=== PATIENT | female | born 2000 | race Caucasian/White ===

== ENCOUNTER 2020-06-24 09:15 | Emergency (ER) | payer OTHER, SELFPAY ==
[2020-06-24 09:19] VITALS: BP 157/127; PULSE 127; RESP 18; TEMP 36.8; O2SAT 98; BMI 26.5
[2020-06-24 09:38] VITALS: BP 142/97; PULSE 90; RESP 20; O2SAT 95
[2020-06-24 10:04] VITALS: BP 131/78; PULSE 74; RESP 20; O2SAT 96
--- NOTE | 2020-06-24 10:04 | CT_ITS ---
WS: [id number] CT ABDOMEN AND PELVIS WITH CONTRAST HISTORY: Lower abdominal pain. Periumbilical pain. TECHNIQUE: Imaging performed of the abdomen and pelvis with IV contrast. Single phase imaging of the abdomen. Coronal and sagittal reformats are submitted. All CT scans at [facility] use at least one of these dose optimization techniques: automated exposure control; mA and/or kV adjustment per patient size (includes targeted exams where dose is matched to clinical indication); or iterativ e reconstruction. IV CONTRAST: Omnipaque 300; 95 mL IV. Oral contrast: No DLP: 462.57 mGy.cm COMPARISON: None available. Lower thorax: Lung bases are clear. Heart is normal size. No hiatal hernia. Liver/biliary system: Normal size with no intrahepatic dilatation. Gallbladder: Normal. No gallstones or wall thickening. No pericholecystic fluid. Pancreas: Normal. Spleen: Normal. Adrenal glands: Normal. Right kidney: Normal. Left kidney: Normal. Aorta: Normal. Lymphadenopathy: None. Free fluid: Very small amount of free fluid in the pelvis to the RIGHT of midline. GI tract: The appendix is not definitely identified. I believe I can see very small portion of the ap pendix which is normal. Abdominal wall: Unremarkable abdominal wall. No hernia. Pelvis: Uterus is anteverted. Both ovaries are identified and contain small follicles. Bones: Unremarkable. CT/CT abdomen pelvis w con* [id number] IMPRESSION: 1. Cannot completely identify the appendix. Very small portion of the appendix is identified and normal contains air. 2. Tiny amount of free fluid in the RIGHT pelvis. 3. No GI tract obstruction.
--- NOTE | 2020-06-24 10:05 | ED_ITS ---
HPI - GI Bleed General: Chief complaint: GI Bleed Stated complaint: Lower abdominal/bowel Time Seen by Provider: 06/24/20 09:26 History of Present Illness: HPI Narrative: 20-year-old female comes in complaining of increased diffuse abdominal cramping started last night progressively worsened. She also had some diarrhea with it. When she first went to bed last night she had a few loose stools with some streaks of blood the cramping woke her up and continued had increasing amounts of blood but she does not have enough blood in the stool to discolor the toilet water. She denies any vomiting. She is not had a fever. She has not had similar episodes of this in the past she has no known history of ulcerative colitis or Crohn's. MD complaint: blood streaked stool Onset (ago): hour(s) Pain Consistency: intermittent Severity: moderate Relieving factors: none Exacerbating factors: none Associated symptoms: Reports abdominal pain, nausea and poor appetite; Denies chills, easy bruising, epistaxis, fever(s), headache(s), malaise, other bleeding, rash, syncope, vomiting or weakness Treatments Prior to Arrival: none Review of Systems Const: Denies: fever(s), chills or malaise ENMT: Denies: epistaxis Card: Denies: syncope Resp: Denies: dyspnea, productive cough or non-productive cough GI: Reports: abdominal pain and nausea; Denies: vomiting : Denies: flank pain, difficulty voiding, dysuria, urinary frequency or urinary urgency Skin/Breast: Denies: rash Neuro: Denies: headache(s) Asif/Lymph: Denies: easy bruising [facility] ED PFSH: Medical History (Updated 06/24/20 @ 11:59 by Danny Granda DO) IBS (irritable bowel syndrome) Social History Smoking and tobacco status: never smoked Physical Exam Const: COMMON NORMALS: no acute distress GENERAL APPEARANCE: cooperative and comfortable ORIENTATION/CONSCIOUSNESS: Yes awake, Yes oriented to person, Yes oriented to place and Yes oriented to time HENMT: COMMON NORMALS: normocephalic, atraumatic and hearing grossly normal bilaterally HEAD & SCALP: normocephalic and atraumatic Neck/C-Spine: COMMON NORMALS: no JVD Resp: COMMON NORMALS: normal respiratory effort, No retractions, No use of accessory muscles and clear to auscultation bilaterally AUSCULTATION: clear to auscultation bilaterally Cardio: COMMON NORMALS: no JVD, regular rate, regular rhythm and No murmurs present (Cardio) RATE: regular rate RHYTHM: regular rhythm GI: COMMON NORMALS: Soft to palpation and No hepatosplenomegaly present AUSCULTATION: Yes normoactive bowel sounds PALPATION: Yes Soft to palpation, Yes Tenderness to palpation present (GI) (diffuse tenderness, negative Mehta's negative Rovsing's no specific pain at McBurney's point with percussion no rebound. No peritoneal signs) Details: other, No Guarding due to palpation present (GI) and Yes No hepatosplenomegaly present Extremity: COMMON NORMALS: normal to inspection, capillary refill normal, no clubbing, cyanosis or edema, no calf tenderness and no pedal edema Neuro: SENSORIUM/ORIENTATION: Yes oriented to person, Yes oriented to place and Yes oriented to time Skin: COMMON NORMALS: no rashes or lesions noted GENERAL SKIN EXAM: no rashes or lesions noted Course Vital Signs: Vital signs: Vital Signs Temperature 98.2 F 06/24/20 09:19 Pulse Rate 86 06/24/20 12:10 Respiratory Rate 18 06/24/20 12:10 Blood Pressure 125/72 06/24/20 12:10 Pulse Oximetry 99 06/24/20 12:10 MDM - GI Bleed MDM Narrative: Medical decision making narrative: Hemoglobin is good at 15 5. We will go ahead and start her on Cipro and Flagyl to cover for infectious colitis refer her to primary care to later get a colonoscopy. If she has any worsening symptoms return. Additionally discussed that she does have a mild cystitis she got a dose of Rocephin here in the Cipro should cover the remainder of that infection as well she has worsening problems return to the emergency room. Lab Data: Labs: Lab Results 06/24/20 06/24/20 06/24/20 Range/Units 09:48 09:48 11:00 WBC 7.9 (4.0-10.0) 10^3/ uL RBC 5.47 H (4.1-5.3) 10^6/u L Hgb 15.5 H (11.5-15.3) g/dL Hct 47.2 H (37.0-47.0) % MCV 86.3 (81-99) fL MCH 28.3 (28.0-34.0) pg MCHC 32.8 (30.0-36.0) g/dL RDW 12.2 (12.1-15.1) % Plt Count 327 (130-400) 10^3/c mm MPV 10.5 H (7.4-10.4) fL Neut % (Auto) 66.8 % Lymph % (Auto) 24.6 % [place] % (Auto) 6.8 % Eos % (Auto) 0.9 % Baso % (Auto) 0.6 % Neut # (Auto) 5.29 (1.8-7.7) 10^3/u L Lymph # (Auto) 2.0 (0.8-4.8) 10^3/u L [place] # (Auto) 0.5 (0.2-0.9) 10^3/u L Eos # (Auto) 0.1 (0.0-0.8) 10^3/u L Baso # (Auto) 0.1 (0.0-0.1) 10^3/u L Nucleated RBC % (a uto) 0 % Nucleated RBCs # 0.0 /100WBC Sodium 138 (136-145) mmol/L Potassium 3.7 (3.5-5.1) mmol/L Chloride 103 (98-107) mmol/L Carbon Dioxide 24 (22-29) mmol/L Anion Gap 14.7 (5-19) BUN 7 (6-20) mg/dL Creatinine 0.6 (0.5-0.9) mg/dL GFR Calculation 126.2 (90-130) mL/min Glucose 95 (65-115) mg/dL Calculated Osmolal ity 284 L (285-295) mOsm/k g Calcium 9.6 (8.5-10.5) mg/dL Total Bilirubin 0.8 (0.15-1.2) mg/dL AST 16 (0-32) U/L ALT 17 (0-33) U/L Alkaline Phosphata se 74 (35-105) IU/L Total Protein 7.9 (6.6-8.7) g/dL Albumin 4.8 (3.5-5.2) g/dL Globulin 3.1 (1.3-4.6) g/dL Lipase 20 (13-60) U/L Urine Color Yellow (Yellow) Urine Appearance Sl hazy (CLEAR) Urine pH 7 (5-7) Ur Specific Gravit y 1.010 (1.005-1.030) Urine Protein Neg (Negative) Urine Glucose (UA) Norm (Normal) Urine Ketones Negative (Negative) Urine Blood 3+ H (Negative) Urine Nitrate Negative (Negative) Urine Bilirubin Neg (Negative) Urine Urobilinogen Norm (Negative) mg/dL Ur Leukocyte Leda ase 2+ H (Negative) Urine RBC 5-10 H (0-2) /hpf Urine WBC 10-15 H (0-5) /hpf Ur Squamous Epith Cells 5-10 H (0-5) /hpf Amorphous Sediment Not Reportable Urine Bacteria 2+ H (NONE) /hpf Urine Mucus 3+ /hpf Discharge Plan Discharge Patient Disposition: Home Clinical Impression: Hematochezia, Cystitis, Colitis Condition: Stable Prescriptions: New ciprofloxacin HCl 500 mg tablet 500 mg PO BID Qty: 14 RF: 0 metronidazole 500 mg tablet 500 mg PO TID Qty: 21 RF: 0 No Action Kak-[id number]-Vwbqub 0.18/0.215/0.25 mg-25 mcg tablet 1 tab PO DAILY RF: 0 Discharge Orders: Discharge Order (Routine); Ordered 06/24/20 Ordered By: Danny Granda Referrals: Elizabeth Horne DO [Primary Care Provider] - Discharge Diet: Clear Liquid Discharge Activity: Increase activity as tolerated Activity Restrictions/Additional Instructions: Follow-up with your primary care doctor in 5 to 7 days. Sooner if there are more concerns or return to the emergency room if you worsen. Discharge Date/Time: 06/24/20 12:10 Coding Level of Care Code ED Laboratory Animal Facility Supervisor for Chg Fwd Exam Comprehensive
[2020-06-24 10:24] LABS: Basophils # 0.1 10^3/uL (0.0-0.1); Basophils % 0.6 %; Eosinophils # 0.1 10^3/uL (0.0-0.8); Eosinophils % 0.9 %; Hematocrit 47.2 % (37.0-47.0); Hemoglobin 15.5 g/dL (11.5-15.3); Lymphocytes % 24.6 %; Mean Corpuscular HGB Conc 32.8 g/dL (30.0-36.0); Mean Corpuscular Hemoglobin 28.3 pg (28.0-34.0); Mean Corpuscular Volume 86.3 fL (81-99); Mean Platelet Volume 10.5 fL (7.4-10.4); Monocytes # 0.5 10^3/uL (0.2-0.9); Monocytes % 6.8 %; Neutrophils # 5.29 10^3/uL (1.8-7.7); Neutrophils % 66.8 %; Nucleated Red Blood Cells % 0 %; Platelet Count 327 10^3/cmm (130-400); Red Blood Count 5.47 10^6/uL (4.1-5.3); Red Cell Distribution Width 12.2 % (12.1-15.1); White Blood Count 7.9 10^3/uL (4.0-10.0)
[2020-06-24 10:37] LABS: Alanine Aminotransferase 17 U/L (0-33); Albumin Level 4.8 g/dL (3.5-5.2); Alkaline Phosphatase 74 IU/L (35-105); Anion Gap 14.7 (5-19); Aspartate Amino Transferase 16 U/L (0-32); Blood Urea Nitrogen 7 mg/dL (6-20); Calcium 9.6 mg/dL (8.5-10.5); Carbon Dioxide 24 mmol/L (22-29); Chloride 103 mmol/L (98-107); Globulin 3.1 g/dL (1.3-4.6); Glomerular Filtration Rate 126.2 mL/min (90-130); Glucose 95 mg/dL (65-115); Lipase 20 U/L (13-60); Osmolality Calculated 284 mOsm/kg (285-295); Potassium 3.7 mmol/L (3.5-5.1); Sodium 138 mmol/L (136-145); Total Bilirubin 0.8 mg/dL (0.15-1.2); Total Protein 7.9 g/dL (6.6-8.7)
[2020-06-24 10:46] VITALS: BP 128/90; PULSE 70; RESP 21; O2SAT 97
[2020-06-24] MEDS: sodium chloride 0.9% 1,000 ML 999 ML IV (10:53)
[2020-06-24 11:12] LABS: Add Urine Microscopic? YES; Bilirubin Urine Neg (Negative); Blood Urine 3+ (Negative); Glucose Urine UA Norm (Normal); Ketones Urine Negative (Negative); Leukocyte Esterase Urine 2+ (Negative); Nitrate Urine Negative (Negative); Protein Urine Neg (Negative); Urine Appearance SL Hazy (CLEAR); Urine Color Yellow (Yellow); Urobilinogen Urine Norm (Negative); pH Urine 7 (5-7)
[2020-06-24] MEDS: iohexol 300 mg/mL 100 mL Btl IV (11:12)
[2020-06-24 11:19] LABS: Bacteria Urine 2+ /hpf; Mucus Urine 3+ /hpf
[2020-06-24 11:20] LABS: Add Urine Culture? Yes
[2020-06-24] MEDS: cefTRIAXone 1,000 mg SDV 1000 MG IM (12:06)
[2020-06-24 12:10] VITALS: BP 125/72; PULSE 86; RESP 18; O2SAT 99
--- NOTE | 2020-06-25 15:01 | DCPLANNER ---
rehabilitation services manager had message to speak with patient about getting established with a primary care physician. rehabilitation services manager spoke with patient, she stated that she would like to get established with a primary care physician. rehabilitation services manager called [facility], spoke with Hellen, a follow up appointment was scheduled for Tuesday, June 29, 2020 at 3:[address] Horne. rehabilitation services manager called patient with appointment information. Patient stated that she would attend appointment.
--- NOTE | 2020-07-31 12:43 | DCPLANNER ---
Patient had a follow up appointment scheduled for 07.02.[address] Horne - patient did attend the appointment.
== END 2020-06-24 12:10 | disposition home or self-care (01) ==
PROVIDERS: Emergency Provider Family Medicine; PCP Family Medicine
DX: N30.90 Cystitis, unspecified without hematuria (principal); K52.9 Noninfective gastroenteritis and colitis, unspecified; K92.1 Melena
CPT/HCPCS: 12345; 74177; 80053; 81001; 83690; 85025; 87086; 96360; 96372; 99283; J0696; J7030; Q9967

== ENCOUNTER → 2020-07-02 15:28 | Outpatient (BNVA) | payer OTHER, SELFPAY | PROVIDERS: PCP Family Medicine; Visit Provider Family Medicine | DX: R19.7 Diarrhea, unspecified (principal); K52.9 Noninfective gastroenteritis and colitis, unspecified | CPT/HCPCS: 82784; 83516 ==

== ENCOUNTER → 2020-07-25 11:22 | Outpatient (BNVA) | payer OTHER, SELFPAY | PROVIDERS: PCP Family Medicine; Visit Provider Surgery | DX: Z20.828 Contact with and (suspected) exposure to other viral communicable diseases (principal); Z01.812 Encounter for preprocedural laboratory examination | CPT/HCPCS: 87635 ==

== ENCOUNTER 2020-07-30 07:02 | Day surgery (SDC) | payer OTHER, SELFPAY ==
[2020-07-28 15:56] VITALS: BMI 26.5
[2020-07-30 07:30] VITALS: BP 140/98; PULSE 90; RESP 16; TEMP 36.8; O2SAT 98
[2020-07-30 07:32] LABS: OR HCG Qualitative Urine Negative (Negative)
[2020-07-30] MEDS: sodium chloride 0.9% 1,000 ML 30 ML IV (07:40)
--- NOTE | 2020-07-30 08:02 | ANES.PREANE2 ---
Pre-Anesthetic Assessment Pre-Anesthetic Assessment: Height/Weight: Height 1.6 m Weight 68.039 kg Temp Pulse Resp BP Pulse Ox 98.2 F 90 16 140/98 98 07/30/20 07:30 07/30/20 07:30 07/30/20 07:30 07/30/20 07:30 07/30/20 07:30 Preop Diagnosis: Bleeding per rectum Proposed Procedure: Operation Date: 07/30/20 08:00 Proposed Procedures p EGD [id number] K29.70 K92.1(Not Applicable) - Medardo Etienne MD s Colonoscopy(Not Applicable) - Medardo Etienne MD Was Beta Rhett taken within 24 hours: N/A Last intake: Intake Last Liquid Date 07/29/20 Last Liquid Time 21:00 Last Solid Date 07/28/20 Last Solid Time 19:00 Social: Social History: No alcohol and No tobacco Exam: Pre-Anes Outpt Exam: alert, oriented x 3, clear to auscultation bilaterally and regular rate & rhythm Airway: Submandibular: WNL Cervical ROM: WNL MP: 2 Dentition: Full History/ROS: No significant history except as noted Anesthetic Plan: ASA status: 1 Anesthesia: MAC Risk of > 500 ml blood loss (7ml/kg in children): No Meds/Allergies Current Medications: Current Medications Generic Name Dose Route Start Last Admin Trade Name Freq PRN Reason Stop Dose Admin Sodium Chloride 1,000 mls @ 30 ml s/hr 07/30/20 07:30 07/30/20 07:40 Sodium Chloride 0.9% IV 30 mls/hr .Q24H KEI Administration PFSH Anesthesia PFSH: Medical History IBS (irritable bowel syndrome) Social History Smoking and tobacco status: never smoked Data Anesthesia Other Labs: Laboratory Results - last 48 hr 07/30/20 07:31 Urine HCG, Qual Negative Cardiac Studies: No Data to Display
--- NOTE | 2020-07-30 08:04 | W.PM.OPSUD ---
Surgery/Procedure H&P Update DATE OF PROCEDURE: July 30, 2020 DATE H&P PERFORMED: 07/17/20 H&P UPDATE INFORMATION: I have reviewed H&P completed within last 30 days, I have examined patient prior to procedure and No changes to prior documentation PREOP DIAGNOSIS: Bleeding per rectum PRIMARY INDICATION FOR PROCEDURE: The same PLANNED PROCEDURE: Operation Date: 07/30/20 08:00 Proposed Procedures p EGD [id number] K29.70 K92.1(Not Applicable) - Medardo Etienne MD s Colonoscopy(Not Applicable) - Medardo Etienne MD
[2020-07-30 08:38] VITALS: BP 121/79; PULSE 66; RESP 16; TEMP 36.1; O2SAT 100
[2020-07-30 08:50] VITALS: BP 132/80; PULSE 68; RESP 18; O2SAT 100
--- NOTE | 2020-07-30 13:50 | ANE.PACU2 ---
Inpatient post-anesthesia follow up: Airway intact: Yes Vital signs: Temperature 97 F Pulse Rate 68 Respiratory Rate 18 Blood Pressure 132/80 Pulse Oximetry 100 Oxygen Delivery Me thod Room Air Oxygen Flow Rate Fraction of Inspir ed Oxygen Hydration adequate: Yes Nausea and vomiting: No Pain level: 1 Mental status: Baseline
[2020-07-31 09:18] LABS: H. Pylori / CLO Test Negative
== END 2020-07-30 09:06 | disposition home or self-care (01) ==
PROVIDERS: Anesthesiology; PCP Family Medicine; Visit Provider Surgery
PROC: 0DJ08ZZ Inspection of Upper Intestinal Tract, Via Natural or Artificial Opening Endoscopic (ICD-10-PCS; CPT 43235; principal; 2020-07-30 08:00)
PROC: 0DJD8ZZ Inspection of Lower Intestinal Tract, Via Natural or Artificial Opening Endoscopic (ICD-10-PCS; CPT 45378; 2020-07-30 08:00)
DX: K62.5 Hemorrhage of anus and rectum (principal); Q27.33 Arteriovenous malformation of digestive system vessel; K21.9 Gastro-esophageal reflux disease without esophagitis; K29.70 Gastritis, unspecified, without bleeding; K58.9 Irritable bowel syndrome, unspecified
CPT/HCPCS: 12345; 43239; 45378; 84703; 87077; J7030